=== PATIENT | female | born 1960 | race Caucasian/White ===

== ENCOUNTER → 2016-10-09 | Outpatient (CLI) | payer BC ==
[2016-10-09 15:01] LABS: CH 29.4; CHCM 33.9; HCT 47.5 % (34.0-46.0); HDW 2.91; HGB 16.1 gm/dL (11.4-16.0); MCH 29.4 pg (25.0-35.0); MCHC 33.8 g/dL (31.0-37.0); Mean Platelet Volume 7.5; RBC 5.46 m/uL (3.80-5.40); RDW 13.3 % (11.5-15.5)
[2016-10-09 15:20] LABS: ALT 48 U/L (9-52); AST 27 U/L (14-36); Alkaline Phosphatase 71 U/L (38-126); Anion Gap 13 mmol/L; Blood Urea Nitrogen 14 mg/dL (7-17); Calcium 9.8 mg/dL (8.4-10.2); Carbon Dioxide 25 mmol/L (22-30); Chloride 100 mmol/L (98-107); Glucose 203 mg/dL (74-99); Non-African American GFR(MDRD) >60 (>60 ml/min/1.73 sqM); Potassium 4.4 mmol/L (3.5-5.1); Sodium 138 mmol/L (137-145); Total Bilirubin 0.6 mg/dL (0.2-1.3); Total Protein 7.6 g/dL (6.3-8.2)
[2016-10-10 15:53] LABS: Cholesterol 242 mg/dL (<200); HDL Cholesterol 38 mg/dL (40-60); Triglycerides 288 mg/dL (<150)
== END | disposition home or self-care (01) ==
LOC: LABWHC1 14:30
PROVIDERS: ATTEND Family Medicine
DX: I10 Essential (primary) hypertension (principal); E11.9 Type 2 diabetes mellitus without complications
CPT/HCPCS: 36415; 80053; 80061; 82043; 83036; 84439; 84443; 85027

== ENCOUNTER → 2016-12-25 | Outpatient (CLI) | payer BC ==
--- NOTE | 2016-12-26 10:44 | CONS ---
DATE OF SERVICE: 12/25/2016 HISTORY OF PRESENT ILLNESS/SLEEP WAKE EVALUATION: A 56-year-old lady who [facility] for possible obstructive sleep apnea- hypopnea syndrome. SLEEP SCHEDULE: Patients usual sleep schedule from 8:00 or 9:00 p.m. until 6 or 6:30 a.m. on weekdays and from 8:00 or 9:00 p.m. until 7:00 or 8:00 a.m. on weekends. FALLING ASLEEP: Usually does not have problems with falling asleep. No TV in bedroom. DURING SLEEP: She sleeps on the side position. She has snoring, opens her mouth during the sleep and wakes up with dry mouth three times and with three episodes of nocturia. She sleeps by herself so no clear information about her breathing during the sleep. DURING THE DAY/WAKE STATE: In the morning she wakes up tired, has problems with memory. [place] sleepiness scale significantly increased to 13. PAST MEDICAL HISTORY: Positive for hypertension, diabetes mellitus, patient in menopause for about 6 years. PAST SURGICAL HISTORY: Tonsillectomy, . MEDICATIONS: Metformin, Benicar, Glucotrol, Norvasc. SOCIAL HISTORY: Negative for smoking. Alcohol consumption very rarely. FAMILY HISTORY: Hypertension, angina, heart problems, stroke, sleep apnea, snoring, cancer of the lungs by her mother, diabetes, anemia, during the sleep in her father. REVIEW OF SYSTEMS: Multiple awakenings from sleep, sleepiness during the day, snoring. No fevers No double vision. No recent chest pain. No shortness of breath. No abdominal pain. No bleeding episodes. No blood in urine. No seizure episodes. PHYSICAL EXAMINATION: General: A pleasant lady without distress. VITAL SIGNS: BP 176/84, HR 112, RR 16, height 5 foot 4, weight 220, body mass index 37.9. Neck 14-3/4 inches in circumference. Temperature 98.2. HEENT: PERRLA, EOMI. Evaluation of oropharynx shows extremely low position of soft palate. Retrognathia 3 mm. NECK: Supple. No JVD. Thyroid is not palpable. LUNGS: Clear to percussion and to auscultation. Good air exchange. No wheezing or rhonchi. HEART: S1, S2 regular. No murmurs, gallops or rubs. ABDOMEN: Obese. Soft and nontender. Bowel sounds are present. No organomegaly appreciated. EXTREMITIES: 1+ ankle edema. No cyanosis or clubbing. PACKAGER HEAD: Awake, alert and oriented x3. Cranial nerves II through VII intact. There is no fasciculation or atrophy noted. No focal deficits observed. IMPRESSION: 1. Snoring, multiple awakenings from sleep, low position of soft palate, sleepiness, [place] sleepiness scale increased to 13, obstructive sleep apnea- hypopnea syndrome. 2. Hypertension not in very good control with two medications. Blood pressure increased in office today. 3. Sleepiness, [place] sleepiness scale is increased to 13. Differential diagnosis includes hypersomnia. 4. Diabetes mellitus. 5. Status post tonsillectomy. 6. Status post . 7. Swelling of the ankles. 8. Menopause for 6 years. PLAN: 1. Polysomnography for evaluation of patients breathing during sleep. 2. CPAP/BiPAP titration if sleep study confirms obstructive sleep apnea- hypopnea syndrome. 3. Preferable position during sleep on the side. 4. No driving if patient feels any sleepiness. Patient is aware of civil and criminal liability for unsafe driving. 5. I will see the patient for follow-up visit to explain results of the testing and following plan. Thank you very much for referring this patient for consultation. Sincerely, Adam Torres MD, PhD, FAASM Diplomat of [place] [employer], Sleep Medicine Board by [place] [employer] [place] [employer]ostics [employer] [facility] [place] [facility]
== END | disposition home or self-care (01) ==
LOC: SLEEP 16:06
PROVIDERS: ATTEND Internal Medicine
DX: G47.33 Obstructive sleep apnea (adult) (pediatric) (principal); I10 Essential (primary) hypertension; E11.9 Type 2 diabetes mellitus without complications; M79.89 Other specified soft tissue disorders; Z98.890 Other specified postprocedural states; Z78.0 Asymptomatic menopausal state
CPT/HCPCS: 99211

== ENCOUNTER → 2018-01-22 | Outpatient (CLI) | payer BC ==
[2018-01-22 16:43] LABS: Basophils # (A) 0.1 k/uL (0-0.2); Basophils % (A) 1 %; Eosinophils # (A) 0.1 k/uL (0-0.7); Eosinophils % (A) 2 %; HCT 44.4 % (34.0-46.0); HGB 14.5 gm/dL (11.4-16.0); Lymphocytes # (A) 2.4 k/uL (1.0-4.8); Lymphocytes % (A) 29 %; MCH 28.5 pg (25.0-35.0); MCHC 32.7 g/dL (31.0-37.0); Mean Platelet Volume 7.1; Monocytes # (A) 0.4 k/uL (0-1.0); Monocytes % (A) 5 %; Neutrophils # (A) 5.2 k/uL (1.3-7.7); Neutrophils % (A) 62 %; Platelet Count 214 k/uL (150-450); RDW 13.5 % (11.5-15.5); WBC 8.3 k/uL (3.8-10.6)
[2018-01-22 17:06] LABS: ALT 43 U/L (9-52); AST 19 U/L (14-36); Albumin 4.3 g/dL (3.5-5.0); Alkaline Phosphatase 60 U/L (38-126); Anion Gap 9 mmol/L; Blood Urea Nitrogen 21 mg/dL (7-17); Calcium 9.9 mg/dL (8.4-10.2); Carbon Dioxide 26 mmol/L (22-30); Chloride 102 mmol/L (98-107); Cholesterol 260 mg/dL (<200); Glucose 183 mg/dL (74-99); HDL Cholesterol 45 mg/dL (40-60); LDL Cholesterol,Calculated 172 mg/dL (0-99); Potassium 4.5 mmol/L (3.5-5.1); Sodium 137 mmol/L (137-145); Total Bilirubin 0.4 mg/dL (0.2-1.3); Total Protein 7.4 g/dL (6.3-8.2); Triglycerides 217 mg/dL (<150)
[2018-01-22 17:21] LABS: T4, Free (Free Thyroxine) 0.78 ng/dL (0.78-2.19)
[2018-01-23 04:41] LABS: Hemoglobin A1C 13.1 % (4.0-6.0)
== END | disposition home or self-care (01) ==
LOC: LABWHC1 15:58
PROVIDERS: ATTEND Family Medicine
DX: Z00.00 Encounter for general adult medical examination without abnormal findings (principal); E11.65 Type 2 diabetes mellitus with hyperglycemia; I10 Essential (primary) hypertension
CPT/HCPCS: 36415; 80053; 80061; 82043; 82570; 83036; 84439; 84443; 85025

== ENCOUNTER → 2018-06-28 | Outpatient (CLI) | payer SELFPAY ==
[2018-06-28 22:55] LABS: Hemoglobin A1C 10.8 % (4.0-6.0)
== END | disposition home or self-care (01) ==
LOC: LABWHC1 10:25
PROVIDERS: ATTEND Family Medicine
DX: E11.65 Type 2 diabetes mellitus with hyperglycemia (principal)
CPT/HCPCS: 36415; 83036

== ENCOUNTER → 2019-06-28 | Outpatient (CLI) | payer SELFPAY ==
[2019-06-28 18:04] LABS: Hemoglobin A1C 11.4 % (4.0-6.0)
== END | disposition home or self-care (01) ==
LOC: LABWHC1 09:55
PROVIDERS: ATTEND Family Medicine
DX: E11.9 Type 2 diabetes mellitus without complications (principal)
CPT/HCPCS: 36415; 83036